=== PATIENT | male | born 1980 | race Caucasian/White ===

== ENCOUNTER 2021-05-14 18:42 | Emergency (ER) | payer OTHER ==
[~2021-05-14] VITALS: Ht 185.4 cm; Wt 99.8 kg
[2021-05-14] MEDS ORDERED: ADVIL LIQUI-GE200 MG PO (19:04)
[2021-05-14] MEDS ORDERED: FLEXERIL PO (19:04)
[2021-05-14] MEDS ORDERED: PERIDEX 0.12%473 M1 SWISH&SPIT (20:22)
[2021-05-14] MEDS ORDERED: AUGMENTIN 875-1 EACH PO (20:22)
[2021-05-14 20:32] VITALS: BP 157/97
== END 2021-05-14 20:32 | disposition home or self-care (01) ==
LOC: M.ERS 18:42
DX: K04.7 Periapical abscess without sinus (principal); J45.909 Unspecified asthma, uncomplicated; F17.200 Nicotine dependence, unspecified, uncomplicated; Z79.899 Other long term (current) drug therapy; Z98.890 Other specified postprocedural states